=== PATIENT | male | born 1995 | race Caucasian/White ===

== ENCOUNTER 2021-08-29 10:00 | Outpatient (REF) | payer BC, OTHER, SELFPAY ==
[2021-08-29 11:31] LABS: MANUAL DIFF FLAG NO
[2021-08-29 11:40] LABS: Basophils Percent Auto 0.6 % (0-2); Eosinophils Absolute Auto 0.9 X10*3/uL (0.0-0.4); Eosinophils Percent Auto 13.3 % (0-4); Hematocrit 44.2 % (42.0-52.0); Hemoglobin 14.4 g/dl (14.0-18.0); Imm Gran Abs Auto 0.01 X10*3/uL (0.00-0.03); Imm Gran Pct Auto 0.2 % (0.0-0.4); Lymphocytes Percent Auto 30.8 % (20-40); Mean Corpuscular HGB Conc 32.6 g/dl (31.0-36.0); Mean Corpuscular Hemoglobin 28.4 pg (27.0-33.0); Mean Corpuscular Volume 87.2 fL (80.0-98.0); Mean Platelet Volume 10.6 fL (9.4-12.4); Monocytes Absolute Auto 0.5 X10*3/uL (0.1-1.2); Neutrophils Absolute Auto 3.1 x10*3/uL (2.0-8.3); Neutrophils Percent Auto 48.1 % (45-73); Platelet Count 241 X10*3/uL (160-400); Red Blood Count 5.07 X10*6/uL (4.60-5.80); Red Cell Distribution Width 12.4 % (11.0-16.0); White Blood Count 6.5 X10*3/uL (4.8-10.8)
[2021-08-29 11:54] LABS: Alanine Aminotransferase 21 U/L (0-40); Anion Gap 12 (12-20); Aspartate Amino Transferase 27 U/L (5-37); Blood Urea Nitrogen 20 mg/dL (9-16); Calcium 9.6 mg/dL (8.4-10.2); Carbon Dioxide 29 mmol/L (22-29); Chloride 104 mmol/L (96-108); Cholesterol 211 mg/dL; Estimated Glomerular Filt Rate > 60; Glucose Fasting 99 mg/dL (60-99); HDL Cholesterol 54 mg/dL; LDL Cholesterol Calculated 144 mg/dl; Potassium 4.6 mmol/L (3.3-5.1); Sodium 140 mmol/L (135-145); Triglycerides 67 mg/dL
== END 2021-08-29 10:01 | disposition home or self-care (01) ==
LOC: HO.HMGCLDS 10:00
PROVIDERS: PCP Internal Medicine; Visit Provider Internal Medicine
DX: Z00.01 Encounter for general adult medical examination with abnormal findings (principal); E66.9 Obesity, unspecified
CPT/HCPCS: 36415; 80048; 80061; 84450; 84460; 85025

== ENCOUNTER 2022-01-09 12:48 | Outpatient (REF) | payer BC, SELFPAY ==
--- NOTE | ~2022-01-09 | XR_ITS ---
EXAMINATION: XR SHOULDER, LEFT CLINICAL INFORMATION: Pain. COMPARISON: None TECHNIQUE: AP external rotation, Grashey, scapular Y, and axillary views of the left shoulder. FINDINGS: The bones and soft tissues are normal. No fracture. Glenohumeral and acromioclavicular alignment is anatomic with normal joint space. No abnormal soft tissue calcifications. XR/XR shoulder LT min 2V IMPRESSION: Normal left shoulder.
== END 2022-01-09 12:49 | disposition home or self-care (01) ==
LOC: HO.HMGCX 12:48
PROVIDERS: PCP Internal Medicine; Visit Provider Nurse Practitioner Family
DX: M25.512 Pain in left shoulder (principal)
CPT/HCPCS: 73030

== ENCOUNTER 2023-12-03 08:39 | Outpatient (AMB) | payer OTHER, SELFPAY ==
--- NOTE | 2023-12-03 08:42 | AM.OFFWIN_ITS ---
Intake Vital Signs 12/03/23 08:43 Height 5 ft 7 in Weight 220 lb BMI 34.5 BP 170/90 H Blood Pressure Location Lt brachial Position Sitting Pulse 57 Pulse Source Pulse Oximeter Temp 97.5 F Temp Source Temporal Artery Scan Pulse Oximetry (%) 98 Oxygen Delivery Method Room Air Intake Visit Reasons: EP acid reflux Intake Note: pt is here today for acid reflux started sunday Patient Tobacco Use Status: Never used Tobacco Allergies No Known Allergies Allergy (Verified 12/03/23 08:45) Do you need a note to return to daycare/school/sports/work: No HPI HPI Comments History of Present Illness Details Patient is a 28-year-old male with no significant past medical history complaining of acid reflux. He states that 3 days ago, he had a coffee and since then he has been having burning in his chest and a lot of burping as well as some diarrhea, nausea and chest pain. He denies any headaches or dizziness or nausea. In the office, his blood pressure is elevated 170/90 upon recheck systolic was in the 150s and again in the 170s, he denies a history of hypertension but he does state he has a blood pressure cuff at home. EKG done in the office shows incomplete right bundle branch block, we have no previous to compare. [facility] Medical History Left radial fracture Mild intermittent asthma in adult without complication OCD (obsessive compulsive disorder) Family History Father Anxiety HTN (hypertension) Hypercholesterolemia Paternal Uncle Throat cancer Anxiety Paternal Grandfather Mental health disorder Social History Housing: House Alcohol intake: former Patient Tobacco Use Status: Never used Tobacco e-Cigarette/Vaping Use: Never Used Current occupational status: employed and student Current occupation: fitter welder, graduated from [employer] Review of Systems Const All systems reviewed & are unremarkable except as noted in HPI and below Physical Exam Vital Signs: Last Vital Signs Temp 97.5 F 12/03/23 08:43 Pulse 57 12/03/23 08:43 BP 170/90 H 12/03/23 08:43 Pulse Ox 98 12/03/23 08:43 Oxygen Delivery Method Room Air 12/03/23 08:43 BMI result Body Mass Index 34.5 Const General: cooperative, healthy appearing, comfortable, no acute distress and well developed Orientation/consciousness: patient oriented x3 Limitations: no limitations HEENT Head: Yes normal to inspection Eyes General: appearance normal, both eyes and all related structures Neck Neck: Yes normal visual inspection and Yes full ROM Resp Effort & Inspection: normal respiratory effort and able to speak in complete sentences Auscultation: clear to auscultation bilaterally Cardio Rate: regular rate Rhythm: regular rhythm Heart sounds: normal S1 and S2 GI Inspection: Yes normal to inspection Palpation (GI): Soft to palpation and nontender Skin General skin exam: no rashes or lesions noted Neuro General: patient oriented x3 Extrem General: Yes normal to inspection Office Procedures EKG 09009-[id number], Complete Assessment & Plan Assessment & Plan (1) Right bundle branch block: Code(s): I45.10 - Unspecified right bundle-branch block Plan: see below (2) Chest pain: Code(s): R07.9 - Chest pain, unspecified Qualifiers: Chest pain type: unspecified Qualified Code(s): R07.9 - Chest pain, un specified Plan: Called ER to expect patient, needs to be ruled out for CT as this is a new right bundle branch block with chest pain and elevated blood pressures which need to be managed, the patient will need workup in the ED. explain this to the patient and did advise if he went straight to , and something was wrong, they would be best to handle it but advised he could go to [facility] as well for further workup and if anything was wrong, they could transfer him via ambulance fairly quickly but it would result in a delay of care. He understands and is choosing to go to [facility]. Plan See above Coding Level of Care Code Est Pt Level 5 (59984) Diagnoses Right bundle branch block I45.10 Chest pain, unspecified type R07.9 Chest pain type: unspecified CPT Codes EKG - CPT: 39839-[id number], Complete ([id number])
[2023-12-03 08:43] VITALS: BP 170/90; PULSE 57; TEMP 36.4; O2SAT 98; BMI 34.5
== END 2023-12-03 09:36 | disposition home or self-care (01) ==
PROVIDERS: PCP Internal Medicine; Visit Provider Physician Assistant
DX: I45.10 Unspecified right bundle-branch block (principal); R07.9 Chest pain, unspecified
CPT/HCPCS: 93000; 99215

== ENCOUNTER 2023-12-03 10:03 | Emergency (ER) | payer OTHER, SELFPAY ==
--- NOTE | 2023-12-03 | ECG_ITS ---
Test Reason : abnormal ekg Blood Pressure : / mmHG Vent. Rate : 066 BPM Atrial Rate : 066 BPM P-R Int : 146 ms QRS Dur : 096 ms QT Int : 424 ms P-R-T Axes : 057 073 039 degrees QTc Int : 444 ms Normal sinus rhythm with sinus arrhythmia Normal ECG No previous ECGs available Referred By: Generic ED Physician Electronically Signed By:MARRY GOMEZ
--- NOTE | ~2023-12-03 | XR_ITS ---
EXAMINATION: XR CHEST CLINICAL INFORMATION: Chest pain COMPARISON: None available. TECHNIQUE: 2 views of the chest were obtained. FINDINGS: No significant abnormality is noted involving the heart, lungs, mediastinum, bony thorax or soft tissues. XR/XR chest 2V IMPRESSION: Unremarkable examination.
[2023-12-03 10:25] VITALS: BP 155/89; PULSE 66; RESP 18; TEMP 36.3; O2SAT 99; BMI 34.5
[2023-12-03 10:45] LABS: Alanine Aminotransferase 30 U/L (0-40); Albumin Level 4.8 g/dL (3.5-5.0); Alkaline Phosphatase 69 U/L (39-117); Anion Gap 16 (12-20); Aspartate Amino Transferase 27 U/L (5-37); Bilirubin Total 0.4 mg/dL (0.0-1.0); Blood Urea Nitrogen 17 mg/dL (9-16); Calcium 10.1 mg/dL (8.4-10.2); Carbon Dioxide 24 mmol/L (22-29); Chloride 104 mmol/L (96-108); Creatinine Clr Calc Pharmacy 112.5; Estimated Glomerular Filt Rate > 60; Glucose Random 111 mg/dL (60-115); Potassium 4.2 mmol/L (3.3-5.1); Sodium 140 mmol/L (135-145); Total Protein 8.1 g/dL (6.5-8.0)
[2023-12-03 10:51] LABS: Troponin-I High Sensitivity < 2.7 ng/L (<3.5-35.0)
[2023-12-03 10:59] LABS: Basophils Absolute Auto 0.1 X10*3/uL (0.0-0.2); Basophils Percent Auto 0.8 % (0-2); Eosinophils Absolute Auto 0.6 X10*3/uL (0.0-0.4); Eosinophils Percent Auto 7.3 % (0-4); Hematocrit 44.1 % (42.0-52.0); Hemoglobin 15.3 g/dl (14.0-18.0); Imm Gran Abs Auto 0.04 X10*3/uL (0.00-0.03); Imm Gran Pct Auto 0.5 % (0.0-0.4); MANUAL DIFF FLAG SCAN; Mean Corpuscular HGB Conc 34.7 g/dl (31.0-36.0); Mean Corpuscular Hemoglobin 29.2 pg (27.0-33.0); Mean Platelet Volume 10.6 fL (9.4-12.4); Monocytes Absolute Auto 0.5 X10*3/uL (0.1-1.2); Monocytes Percent Auto 6.9 % (2-11); Neutrophils Absolute Auto 4.5 x10*3/uL (2.0-8.3); Neutrophils Percent Auto 58.5 % (45-73); PLT CLUMP 1; Red Blood Count 5.24 X10*6/uL (4.60-5.80); Red Cell Distribution Width 12.2 % (11.0-16.0); SCAN SMEAR FLAG 1; White Blood Count 7.7 X10*3/uL (4.8-10.8)
[2023-12-03 11:00] LABS: Mean Corpuscular Volume 84.2 fL (80.0-98.0)
[2023-12-03 11:14] LABS: Platelet Count 207 X10*3/uL (160-400)
[2023-12-03 11:15] LABS: SLIDE REVIEW VERIFIED
--- NOTE | 2023-12-03 12:23 | ED.CHESTPAIN ---
HPI - Chest Pain General Chief Complaint: Chest Pain Stated Complaint: Abnormal EKG Time Seen by Provider: 12/03/23 12:17 Source: patient Limitations: no limitations History of Present Illness HPI narrative: 28 years old with no significant past medical history, family history of CAD, presents to the emergency room sent from walk-in clinic for abnormal EKG. Patient presented to the walk-in clinic because since Sunday he has been having intermittent episodes of chest pain that patient reports are xhan-[id number] in intensity, worsened by some type of food and relieved by drinking water, not exertional nonpleuritic. Patient also endorses large use of caffeinated drinks over the past few days. He denies abdominal pain nausea or vomiting. No chills fever or cough Recent trauma. Related Data Home Medications ?Medication ?Instructions ?Recorded ?Confirmed budesonide-formoterol HFA 160 2 puff inhalation BID 08/26/20 08/29/21 mcg-4.5 mcg/actuation aerosol inhaler (Symbicort) fluoxetine 20 mg capsule (Prozac) 20 mg PO DAILY 08/26/20 08/29/21 Previous Rx's ?Medication ?Instructions ?Recorded albuterol sulfate 90 mcg/actuation 2 puff inhalation Q6H PRN 08/26/20 aerosol inhaler (ProAir HFA) shortness of breath or wheezing #8.5 grams pantoprazole 20 mg tablet,delayed 20 mg PO DAILY #14 tabs 12/03/23 release Allergies Allergy/AdvReac Type Severity Reaction Status Date / Time No Known Allergies Allergy Verified 12/03/23 10:30 Review of Systems Review of Systems: Yes all other systems are reviewed and are negative [facility] Past Medical History Medical History Left radial fracture Mild intermittent asthma in adult without complication OCD (obsessive compulsive disorder) Family History Family History Father Anxiety HTN (hypertension) Hypercholesterolemia Paternal Uncle Throat cancer Anxiety Paternal Grandfather Mental health disorder Social History Social History Housing: House Alcohol intake: former Patient Tobacco Use Status: Never used Tobacco e-Cigarette/Vaping Use: Never Used Use of substances other than those prescribed or required for medical reasons: No Advance Directives: No Advance Directives Information Provided: Yes Do you have a plan to hurt others: No Plan Current occupational status: employed and student Current occupation: lead welder, graduated from [employer] Physical Exam Vital Signs: Vital Signs: Last Vital Signs Temp 97.6 F 12/03/23 12:26 Pulse 56 12/03/23 12:26 Resp 16 12/03/23 12:26 BP 160/84 H 12/03/23 12:26 Pulse Ox 98 12/03/23 12:26 O2 Del Method Room Air 12/03/23 12:26 BMI result Body Mass Index 34.5 General: Alert, Not in Distress Skin: No rash, warm HEENT: Atraumatic, No Exudate or Pharyngeal Erythema Resp: Normal Breath sounds bilaterally Cardio: Regular rate and Rhythm, Normal S1, S2 ABD: Abd soft, non tender, no guarding or rebound. Normal Bowel sounds. : No cva tenderness Neuro: Alert, oriented x4, PERRL Strenght 5/5 on all extremities Sensation is preserved in both lower and upper extremities Index to nose: normal Cranial Nerves II-XII grossly intact No dysarthria, or aphasia No neglet. Visual west are normal bilaterally Psych: Cooperative, NO SI Course Reevaluation(s) Reevaluation #1: Patient's lab work, imaging and EKG at this time are unremarkable. I do not think patient requires further observation or admission, pain is been present since Sunday and 1 single troponin is sufficient to rule out ACS. In my opinion the patient's symptoms may be related to GERD for this reason we will start him on PPI trial. I recommended the patient to follow-up with his primary care physician within the next 7-10 days. Return precautions were also discussed at bedside including change of pain features (exertional, associated with shortness of breath or fever) Patient understands, agrees with plan Will DC Medical Decision Making Medical Decision Making MDM Narrative: 28 years old presented to the emergency room for chest pain. Based on history and physical exam I feel pain is most likely related to GERD/GI, less likely ACS or musculoskeletal pain. Patient can be perc out, heart score is 2 based on history and EKG that he is reported as right bundle-branch block. Plan Repeat EKG Chest x-ray Troponin Admission/Observation Consideration of admission/observation: Escalation of care including admission/observation considered Lab Data MDM Lab Attestation statement: I reviewed the patient's lab results. Negative troponin 12/03/23 10:22 12/03/23 10:22 Labs: Lab Results 12/03/23 Range/Units 10:22 WBC 7.7 (4.8-10.8) X10*3/uL RBC 5.24 (4.60-5.80) X10*6/uL Hgb 15.3 (14.0-18.0) g/dl Hct 44.1 (42.0-52.0) % MCV 84.2 (80.0-98.0) fL MCH 29.2 (27.0-33.0) pg MCHC 34.7 (31.0-36.0) g/dl RDW 12.2 (11.0-16.0) % Plt Count 207 (160-400) X10*3/uL MPV 10.6 (9.4-12.4) fL Immature Gran % (Auto) 0.5 H (0.0-0.4) % Neut % (Auto) 58.5 (45-73) % Lymph % (Auto) 26.0 (20-40) % [place] % (Auto) 6.9 (2-11) % Eos % (Auto) 7.3 H (0-4) % Baso % (Auto) 0.8 (0-2) % Lymph # (Auto) 2.0 (1.2-4.9) X10*3/uL [place] # (Auto) 0.5 (0.1-1.2) X10*3/uL Eos # (Auto) 0.6 H (0.0-0.4) X10*3/uL Baso # (Auto) 0.1 (0.0-0.2) X10*3/uL Abs Immat Gran (auto) 0.04 H (0.00-0.03) X10*3/uL Absolute Neuts (auto) 4.5 (2.0-8.3) x10*3/uL Absolute Nucleated RBC 0.000 (0.0-0.012) X10*3/uL Nucleated RBC % (auto) 0.0 (0.0-0.2) /100WBC Smear Tech's Comments VERIFIED Sodium 140 (135-145) mmol/L Potassium 4.2 (3.3-5.1) mmol/L Chloride 104 (96-108) mmol/L Carbon Dioxide 24 (22-29) mmol/L Anion Gap 16 (12-20) BUN 17 H (9-16) mg/dL Creatinine 1.12 (0.5-1.4) mg/dL Estim Creat Clear Calc 112.5 Estimated GFR > 60 Random Glucose 111 (60-115) mg/dL Calcium 10.1 (8.4-10.2) mg/dL Total Bilirubin 0.4 (0.0-1.0) mg/dL AST 27 (5-37) U/L ALT 30 (0-40) U/L Alkaline Phosphatase 69 (39-117) U/L Troponin I High Sens < 2.7 (<3.5-35.0) ng/L Total Protein 8.1 H (6.5-8.0) g/dL Albumin 4.8 (3.5-5.0) g/dL Independent Interpretation I performed an independent interpretation of an: EKG (I personally reviewed and interpreted and the patient EKG that shows normal sinus rhythm) and Plain X-Ray (I personally reviewed and interpreted the patient's chest x-ray that shows normal chest x-ray. ) Discharge Plan Discharge Clinical Impression: Chest pain, Chest pain due to GERD Patient Disposition: Home, Self-Care Additional Instructions: You were seen in the emergency room for chest pain Symptoms possibly secondary to GERD For this reason we sent a prescription for pantoprazole to start tomorrow morning. This medication once a day in the morning for the next 2 weeks. Follow-up with your primary care physician in a week to make sure symptoms are improving If symptoms worsened presents emergency room for evaluation. Prescriptions: New pantoprazole 20 mg tablet,delayed release (DR/EC) 20 mg PO DAILY Qty: 14 0RF No Action budesonide-formoterol [Symbicort] 160-4.5 mcg/actuation HFA aerosol inhaler 2 puff inhalation BID fluoxetine [Prozac] 20 mg capsule 20 mg PO DAILY albuterol sulfate [ProAir HFA] 90 mcg/actuation HFA aerosol inhaler 2 puff inhalation Q6H PRN (Reason: shortness of breath or wheezing) Qty: 8.5 1RF Print Language: Hungarian
[2023-12-03 12:26] VITALS: BP 160/84; PULSE 56; RESP 16; TEMP 36.4; O2SAT 98
--- NOTE | 2023-12-03 13:26 | PC.NURSE ---
Confirmed with provider, no second trop needed. Patient to be discharged
[2023-12-03 13:32] VITALS: BP 145/78; PULSE 56; RESP 16; TEMP 36.4; O2SAT 99
== END 2023-12-03 13:32 | disposition home or self-care (01) ==
PROVIDERS: Emergency Provider Student in an Organized Health Care Education/Training Program; PCP Internal Medicine
DX: K21.9 Gastro-esophageal reflux disease without esophagitis (principal); Z82.49 Family history of ischemic heart disease and other diseases of the circulatory system
CPT/HCPCS: 36415; 71046; 80053; 84484; 85025; 93005; 99283; 99285

== ENCOUNTER → 2023-12-03 10:06 | Outpatient (BNV) | payer OTHER, SELFPAY | PROVIDERS: Emergency Provider Student in an Organized Health Care Education/Training Program; PCP Internal Medicine; Visit Provider Internal Medicine | DX: R94.31 Abnormal electrocardiogram [ECG] [EKG] (principal) | CPT/HCPCS: 93010 ==

== ENCOUNTER 2023-12-20 09:22 | Outpatient (AMB) | payer OTHER, SELFPAY ==
--- NOTE | 2023-12-20 09:23 | MHC.PC.OV ---
Vital Signs 12/20/23 09:28 Height 5 ft 7 in Weight 220 lb BMI 34.5 BP 118/76 Blood Pressure Location Lt brachial Position Sitting Pulse 46 L Pulse Source Pulse Oximeter Pulse Oximetry (%) 98 Oxygen Delivery Method Room Air Intake Visit Reasons: ER f/u C chest pain. Per Dr. Deluna Intake Note: pt is here for ER f/u for chest pain Allergies No Known Allergies Allergy (Verified 12/20/23 10:11) Medication List - Last Reconciled 12/20/23 by PAMELA Rivero albuterol sulfate 90 mcg/actuation (ProAir HFA) 2 puffs inhalation Q6H PRN budesonide-formoterol 160-4.5 mcg/actuation (Symbicort) 2 puffs inhalation BID fluoxetine (Prozac) 20 mg PO DAILY pantoprazole 20 mg PO DAILY Tobacco use date assessed: 12/20/23 Dental Screening Dental Screen Date: 12/20/23 Did you have a dental visit in the last 12 months?: Yes Did you have a dental problem in the last 6 months where you did not have access to dental care?: No Was dental information given to patient?: Patient has dentist HPI HPI Comments History of Present Illness Details Patient is a 28-year-old male in today for hospital discharge follow-up. He was seen in the local emergency room for episodes of chest pain that had been lasting for several days. Patient had workup involving troponin EKG and chest x-ray that all came back negative for ACS. Patient was diagnosed with GERD, was given pantoprazole sodium for 2 weeks. Patient presents today stating that his symptoms have subsided. Pantoprazole sodium has helped incidences of chest pain, and throat discomfort. States that he no longer has the symptoms. Denies dizziness, chest pain, shortness a breath, numbness, nausea, vomiting, diarrhea Patient is bradycardic today at the appointment. He reports that this is part of his past medical history, has had cardiological workup through [facility] including echocardiogram has been cleared. 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 1. Little interest or pleasure in doing things: not at all 2. Feeling down, depressed, or hopeless: not at all 3. Trouble falling or staying asleep, or sleeping too much: not at all 4. Feeling tired or having little energy: not at all 5. Poor appetite or overeating: not at all 6. Feeling bad about yourself - or that you are a failure or have let yourself or your family down: not at all 7. Trouble concentrating on things, such as reading the newspaper or watching television: not at all 8. Moving or speaking so slowly that other people could have noticed. Or the opposite - being so fidgety or restless that you have been moving around a lot more than usual: not at all 9. Thoughts that you would be better off or of hurting yourself in some way: not at all Total score: 0 Depression Screening Interpretation: Negative Depression Screening Done: Yes 41503 - PHQ-9 Billing: Yes Source: Developed by Drs. Morris Sandoval, Annamaria Marte, Eduin Del Rio and colleagues, with an educational naina from [employer] & other things you bake. Thrive Questionnaire Date Thrive assessed: 08/29/21 AUDIT C Alcohol Use Questionnaire (AUDIT-C) 1. How often do you have a drink containing alcohol?: 2-4 times a month 2. How many drinks containing alcohol do you have on a typical day when you are drinking?: 3 or 4 3. How often do you have six or more drinks on one occasion?: Monthly Total Score: 5 Score Reviewed/Action Taken: Yes AURORA-7 AMB Questionnaire AURORA-7 Date AURORA - 7 assessed: 12/20/23 Feeling nervous, anxious, or on edge: 0 = Not at all Not being able to stop or control worryin = Not at all Worrying too much about different things: 0 = Not at all Trouble relaxin = Not at all Being so restless that it is hard to sit still: 0 = Not at all Becoming easily annoyed or irritable: 0 = Not at all Feeling afraid as if something awful might happen: 0 = Not at all Total AURORA-7 score (0-4 normal; 5-9 mild; 10-14 moderate; 15-21 severe): 0 Source: Developed by Drs. Morris Sandoval, Annamaria Marte, Eduin Del Rio and colleagues, with an educational naina from [employer] & other things you bake. AURORA-7 Assessment Billing AURORA-7 Assessment Tool: AURORA-7 Assessment 83943 Review of Systems Const All systems reviewed & are unremarkable except as noted in HPI and below Denies chills and Denies fever(s) Eyes Denies blurry vision and Denies diplopia ENT Denies vertigo, Denies dizziness and Denies disequilibrium Card Denies chest pain and Denies dyspnea Resp Denies cough, Denies dyspnea and Denies wheezing GI Denies diarrhea, Denies nausea and Denies vomiting Neuro Denies Neuro-related abnormal movements, Denies Abnormal speech present, Denies vertigo, Denies dizziness, Denies radicular pain and Denies disequilibrium Psych Denies homicidal ideation and Denies suicidal ideation Aller/Immun Denies wheezing Physical exam (Primary Care) Vital Signs: Last Vital Signs Pulse 46 L 12/20/23 09:28 BP 118/76 12/20/23 09:28 Pulse Ox 98 12/20/23 09:28 Oxygen Delivery Method Room Air 12/20/23 09:28 BMI result Body Mass Index 34.5 Tobacco/Smoking Status: Tobacco use Status Tobacco use date assessed 12/20/23 12/20/23 09:26 Patient Tobacco Use Status Never used Tobacco 12/20/23 09:26 e-Cigarette/Vaping Use Never Used 12/20/23 09:26 PHQ-9: PHQ-9 Score PHQ-9: Total score 0 12/20/23 09:26 Depression Screening Interpretation: Negative Thrive Assessment: Date of Thrive Assessment Date Thrive assessed 08/29/21 12/20/23 09:26 Const Other: Appearance: Alert.? Oriented X3.? No acute distress.? Head: Normocephalic, atraumatic, no step-offs or deformities Eyes: Pupils equal, round and reactive to light.? Neck: Normal inspection.? Neck supple.? CVS: Bradycardia.? Pulses normal.? Will obtain repeat EKG. Respiratory: No respiratory distress.? Breath sounds normal.? Abdomen: Soft and nontender.? Skin: Skin warm and dry.? Normal skin color.? Normal skin turgor.? Neuro: Oriented X 3.? No motor deficit.? No sensory deficit. CN 2-12 intact Neuro Speech: No Abnormal speech present Office Procedures EKG 40350-[id number], Complete Assessment and Plan Assessment & Plan (1) Hospital discharge follow-up: Comment: Patient is a 28-year-old male in today for hospital discharge follow-up. He was seen in the local emergency room for episodes of chest pain that had been lasting for several days. Patient had workup involving troponin EKG and chest x-ray that all came back negative for ACS. Patient was diagnosed with GERD, was given pantoprazole sodium for 2 weeks. Patient presents today stating that his symptoms have subsided. Pantoprazole sodium has helped incidences of chest pain, and throat discomfort. States that he no longer has the symptoms. Denies dizziness, chest pain, shortness a breath, numbness, nausea, vomiting, diarrhea Patient is bradycardic today at the appointment. He reports that this is part of his past medical history, has had cardiological workup through [facility] including echocardiogram has been cleared. 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 Code(s): Z09 - Encounter for follow-up examination after completed treatment for conditions other than malignant neoplasm (2) Abnormal EKG: Comment: Patient will get referral to cardiology and echocardiogram. Patient has been educated on signs of worsening symptoms and when to report back to the office or when to present to the emergency room. Patient is asymptomatic at the office today. Code(s): R94.31 - Abnormal electrocardiogram [ECG] [EKG] Plan: Draw labs. Orders: Orders AMB EKG-In Office Today Z13.6 - Encounter for screening for cardiovascular disorders CA echo transthoracic complete Today R94.31 - Abnormal electrocardiogram [ECG] [EKG] Referrals Cardiology Referral R94.31 - Abnormal electrocardiogram [ECG] [EKG] Medications: Refilled pantoprazole 20 mg PO DAILY 30 tabs 0RF Coding Level of Care Code Est Pt Level 3 (26220) Diagnoses Hospital discharge follow-up Z09 Abnormal EKG R94.31 CPT Codes EKG - CPT: 16728-[id number], Complete ([id number]) Additional Codes AURORA-7 Assessment Billing - AURORA-7 Assessment Tool: AURORA-7 Assessment 90841 ([id number]) Time Spent (min) 28
[2023-12-20 09:28] VITALS: BP 118/76; PULSE 46; O2SAT 98; BMI 34.5
== END 2023-12-20 11:22 | disposition home or self-care (01) ==
LOC: HO.HMGC 09:22
PROVIDERS: PCP Internal Medicine; Visit Provider Nurse Practitioner Primary Care
DX: R94.31 Abnormal electrocardiogram [ECG] [EKG] (principal); Z09 Encounter for follow-up examination after completed treatment for conditions other than malignant neoplasm
CPT/HCPCS: 93000; 99213

== ENCOUNTER 2024-01-18 08:11 | Outpatient (AMB) | payer OTHER, SELFPAY ==
--- NOTE | 2024-01-18 08:27 | A.OFFVIS_ITS ---
Vital Signs 01/18/24 08:28 Height 5 ft 7 in Weight 226 lb 10.163 oz BMI 35.5 BP 122/80 Blood Pressure Location Rt brachial Position Sitting Pulse 53 Pulse Source Monitor Intake Visit Reasons: INTERNAL REVENUE AGENT/ER Follow up/Monique/Abnormal ECG/EKG Allergies No Known Allergies Allergy (Verified 01/18/24 08:30) Medication List - Last Reconciled 01/18/24 by January Pfeiffer NP-C albuterol sulfate 90 mcg/actuation (ProAir HFA) 2 puffs inhalation Q6H PRN fluoxetine (Prozac) 20 mg PO DAILY pantoprazole 20 mg PO DAILY HPI HPI INTERNAL REVENUE AGENT/ER Follow up/Monique/Abnormal ECG/EKG: Details: Benjamin is a 28-year-old male with past medical history of asthma, gastric reflux who was referred to Cardiology for evaluation of sinus bradycardia, incomplete right bundle branch block. Today he presents for cardiology consultation. He tells me he has no chest discomfort at rest or with exertion. His prior chest discomfort was felt to be GERD and relieved with PPI. He does have asthma which has been controlled. At times he will notice some mild shortness of breath. No PND, orthopnea or edema. No lightheadedness, presyncope, syncope, falls. Had an echocardiogram years ago which he believes was normal. Played hockey all his life and through college. At this time he continues to exercise 4 days weekly with weight lifting and cardio. He recently ran 4 miles without concerning symptoms. He works as a automotive welder. Nonsmoker, denies out use. Maternal uncle had fatal ND age 39. No other family cardiac history. [facility] Medical History Left radial fracture OCD (obsessive compulsive disorder) Mild intermittent asthma in adult without complication Surgical History No pertinent past surgical history Family History Father Anxiety HTN (hypertension) Hypercholesterolemia Paternal Uncle Throat cancer Anxiety Paternal Grandfather Mental health disorder Social History Housing: House Alcohol intake: former Patient Tobacco Use Status: Never used Tobacco e-Cigarette/Vaping Use: Never Used Current occupational status: employed and student Current occupation: automotive welder, graduated from [employer] Cognitive needs: No Hearing needs: No Vision needs: No Review of Systems Const All systems reviewed & are unremarkable except as noted in HPI and below ENT Denies dizziness Card Denies chest pain, Denies chest pain at rest, Denies chest pain with activity, Denies rapid heart rate, Denies pedal edema, Denies edema, Denies leg edema, Denies lightheadedness, Denies palpitations, Denies dyspnea, Denies dyspnea on exertion and Denies orthopnea Resp Denies cough, Denies dyspnea and Denies dyspnea on exertion GI Denies hematochezia and Denies change in stool character Musc Denies abnormal gait, Denies limited range of motion, Denies muscle cramps, Denies muscle weakness, Denies numbness, Denies radiating pain into limb, Denies stiffness and Denies tingling Neuro Denies abnormal gait, Denies dizziness, Denies numbness and Denies tingling Endo Denies palpitations Physical Exam Vital Signs: Last Vital Signs Pulse 53 01/18/24 08:28 BP 122/80 01/18/24 08:28 BMI result Body Mass Index 35.5 Const General: cooperative, healthy appearing, comfortable and no acute distress Orientation/consciousness: patient oriented x3 Neck Neck: Yes normal visual inspection Carotids: normal carotid upstroke Resp Effort & Inspection: normal respiratory effort Auscultation: clear to auscultation bilaterally, no crackles, no rales, no rhonchi and no wheezes Cardio Jugular venous distension: no JVD Rate: regular rate Rhythm: regular rhythm Heart sounds: S1 normal heart sound present, S2 normal heart sound present, no murmurs and no rubs Neuro General: patient oriented x3 Extrem General: Yes normal to inspection and No no pedal edema Psych Appearance: grossly normal Mental Status: mental status grossly normal Speech and movement: Normal speech and movement present Office Procedures EKG Details: Today, read by me, sinus bradycardia with sinus arrhythmia, incomplete right bundle branch block, right axis, QTC 407 milliseconds, rate 53. [id number], Complete Assessment & Plan Assessment & Plan (1) Sinus bradycardia: Code(s): R00.1 - Bradycardia, unspecified Category: Medical Plan: History of sinus bradycardia. EKG from 01/19/2017 showed marked sinus bradycardia, incomplete right bundle branch block, rate 41. 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 He continues to exercise routinely. He has never had presyncope, syncope. He reports good activity tolerance. EKG done today showing sinus bradycardia with sinus arrhythmia, incomplete right bundle branch block, rate 53, normal MN, QRS and QTC intervals. He is not on any rate slowing agents. He likely has good cardiac tone due to sports. For completeness will check a Holter monitor to assess for average heart rates, significant bradycardia or pauses. Will check an exercise stress test to evaluate for chronotropic competence. Plan to call him with test results. Cardiology office visit as needed. All the above reviewed with him and he is agreeable to this plan (2) Incomplete right bundle branch block: Code(s): I45.10 - Unspecified right bundle-branch block Category: Medical Plan: Chronic finding as above. No other electrical abnormalities noted on EKG. Reviewed this with patient. Cardiac testing as above. (3) Chest pain: Code(s): R07.9 - Chest pain, unspecified Category: Medical Qualifiers: Chest pain type: unspecified Qualified Code(s): R07.9 - Chest pain, unspecified Plan: Recent ER evaluation for chest discomfort. He ruled out for ACS. His symptom was thought to be related to GERD. He was put on pantoprazole with improvement in symptoms. At this point he has no anginal sounding symptoms. He does have a family history of sudden cardiac in maternal uncle age 39. Will be doing exercise stress test as above. Plan Time spent on chart review, documentation, interview and assessment Orders: Orders ECG 3 day holter monitor Today I45.10 - Unspecified right bundle-branch block, R00.1 - Bradycardia, unspecified CA stress test Today I45.10 - Unspecified right bundle-branch block, R00.1 - Bradycardia, unspecified, R07.9 - Chest pain, unspecified Coding Level of Care Code New Pt Level 3 (57989) Diagnoses Sinus bradycardia R00.1 Incomplete right bundle branch block I45.10 Chest pain, unspecified type R07.9 Chest pain type: unspecified CPT Codes EKG - CPT: [id number], Complete ([id number]) Time Spent (min) 28
[2024-01-18 08:28] VITALS: BP 122/80; PULSE 53; BMI 35.5
== END 2024-01-18 08:52 | disposition home or self-care (01) ==
PROVIDERS: PCP Internal Medicine; Visit Provider Nurse Practitioner Family
DX: R00.1 Bradycardia, unspecified (principal); I45.10 Unspecified right bundle-branch block; R07.9 Chest pain, unspecified
CPT/HCPCS: 93010; 99203

== ENCOUNTER → 2024-01-18 08:11 | Outpatient (BNVA) | payer OTHER, SELFPAY | PROVIDERS: PCP Internal Medicine; Visit Provider Nurse Practitioner Family | DX: R00.1 Bradycardia, unspecified (principal); I45.10 Unspecified right bundle-branch block; R07.9 Chest pain, unspecified | CPT/HCPCS: 93005 ==

== ENCOUNTER → 2024-01-30 08:47 | Outpatient (REF) | payer OTHER, SELFPAY ==
--- NOTE | 2024-01-30 08:51 | CA_ITS ---
Transthoracic Echocardiogram Patient (Last, First, Middle): Benjamin Kelley Thomas Gender: Male Date of : 1995 Age: 28 Procedure Date: 01/30/2024 Procedure Type: Transthoracic Echocardiogram Location: OP Height: 170.18 cm Weight: 99.79 kg BSA: 2.11 m2 Heart Rate: bpm BP: 140 / 90 mmHg Roving Machine Operator: TO Referring MD: Elder SANTIAGO Lining Machine Operator: Prakash Alvarado MD Symptoms: R94.31 - Abnormal electrocardiogram [ECG] [EKG] Study Quality: Adequate ECG Rhythm: Sinus Conclusions: - Essentially normal study Findings Procedure Information Contrast agent, definity, is being given per protocol without apparent complications. Left Ventricle Normal left ventricular size, thickness, and systolic function. The visually estimated ejection fraction is between 55-60%. Diastolic function is normal for age. Right Ventricle Normal right ventricular cavity size and systolic function. Atria Both atria are normal in size. Interatrial shunt cannot be excluded. Aortic Valve The aortic valve structure and function is likely normal. There is no aortic valve stenosis. There is no aortic valve regurgitation. Mitral Valve Normal mitral valve structure and function. There is trace mitral valve regurgitation. There is no mitral valve stenosis. Pulmonic Valve The pulmonic valve is likely normal. There is trace pulmonic valve regurgitation. Tricuspid Valve Likely normal tricuspid valve structure and function. Tricuspid regurgitation envelope is inadequate for calculation of right ventricular systolic pressure. Normal right atrial pressure. Great Vessels All visible segments of the aorta are normal in size. The pulmonary artery was not well visualized. Venous The inferior vena cava is normal in size. Inferior vena cava flow is normal. Pericardium/Pleural There is no evidence of pericardial effusion. Prior Study Comparison No prior study available for comparison. Measurements 2D Linear Measurements IVSd: 0.89 0.6-0.9/0.6-1.0 cm LVIDd: 5.60 3.9-5.3/4.2-5.9 cm LVIDd Index: 2.65 2.4-3.2/2.2-3.1 cm/m2 LVIDs: 3.54 2.0-3.6 cm LVPWd: 0.84 0.7-1.1 cm LA Diam: 3.60 2.7-3.8/3.0-4.0 cm LAIDs Index: 1.71 1.5-2.3 cm/m2 LV Mass: 226.78 67-162/88-224 g LV Mass Index: 107.48 43-95/49-115 g/m2 LVOT Diam: 2.40 3.0+(-)1.3 cm 2D Systolic Function EF 4C: 56.00 >55% EF 2C: 61.80 >55% EF BiP: 59.60 >55% Mitral Valve MV Pk E: 0.69 MV PK A: 0.36 MV Decel Time: 246.00 E/A: 1.90 E'Lateral: 17.00 E'Medial: 8.81 E/E' Med: 7.90 E/E' Lat: 4.10 PHT: 72.00 MVA PHT: 3.06 Decel Bonner: 2.82 Aortic Valve AoV Pk Wicho: 1.42 AoV Mn Wicho: 0.82 AoV VTI: 0.25 AoV Pk Grad: 8.00 Aov Mn Grad: 3.00 MIKE Cont.VTI: 3.74 LVOT LVOT Pk Wicho: 1.06 LVOT Mn Wicho: 0.77 LVOT VTI: 0.21 LVOT Pk Grad: 4.00 LVOT Mn Grad: 3.00 LVOT Diam: 2.40 LVOT Area: 4.52 Diastolic Function MV Pk E: 0.69 MV Pk A: 0.36 E/A: 1.90 E'Medial: 8.81 E/E' Med: 7.90 E' Laterial: 17.00 E/E' Lat: 4.10 Right Ventricle TAPSE (mm): 26.40 TVS' Wicho: 16.40 Tricuspid Valve RA Press: 3.00 Great Vessels Aorta Ao Asc: 2.60 2.1-3.4 cm Updated in Other Vendor System with Status of Final Prakash Alvardao MD electronically signed on 01/30/2024 3:31:06 PM with status of Final
--- NOTE | 2024-01-30 08:51 | HM_ITS ---
* Total monitoring time 3 days. * Underlying rhythm is sinus with an average rate of 63/Min. * About 54% of the time, rate < 60/Min. * No significant pauses or high-grade AV blocks. * No patient markers or diary events. MTDD
== END ==
LOC: HO.CARD 08:47
PROVIDERS: PCP Internal Medicine; Visit Provider Nurse Practitioner Primary Care
DX: R00.1 Bradycardia, unspecified (principal); I45.10 Unspecified right bundle-branch block
CPT/HCPCS: 93242; 93306; Q9957

== ENCOUNTER → 2024-01-30 08:51 | Outpatient (BNV) | payer OTHER, SELFPAY | PROVIDERS: PCP Internal Medicine; Visit Provider Internal Medicine Cardiovascular Disease | DX: R00.1 Bradycardia, unspecified (principal) | CPT/HCPCS: 93244; 93306 ==

== ENCOUNTER → 2024-02-04 07:57 | Outpatient (REF) | payer OTHER, SELFPAY ==
--- NOTE | 2024-02-04 08:00 | CA_ITS ---
Acquisition Time: 2024-02-04 08:15:32 Total Exercise Time: 00:09:00 Test Indications: ABN EKG, SD, IRBBB Medications: SEE CHART Protocol: MARY Max HR: 171 BPM 88% of Pred: 194 BPM Max BP: 208/060 mmHG Max Work Load: 10.1 METS Excerise stress test exercise 9 min of Mary protocol achieving 88% MPHR, without anginal symptoms, with isolated PACs, with normal chronotropic response, with HTN response to exercise - max BP 208/60, withT wave inversion in lead 3. Test reviewed with Dr. Whiting. Referred By: January Pfeiffer Overread By: Carolyne Rinaldi
== END ==
LOC: HO.CARD 07:57
PROVIDERS: PCP Internal Medicine; Visit Provider Nurse Practitioner Family
DX: R07.9 Chest pain, unspecified (principal); I45.10 Unspecified right bundle-branch block; R00.1 Bradycardia, unspecified
CPT/HCPCS: 93017

== ENCOUNTER → 2024-02-04 08:00 | Outpatient (BNV) | payer OTHER, SELFPAY | PROVIDERS: PCP Internal Medicine; Visit Provider Nurse Practitioner | DX: I49.1 Atrial premature depolarization (principal) | CPT/HCPCS: 93016; 93018 ==

== ENCOUNTER 2024-10-23 14:18 | Outpatient (AMB) | payer OTHER, SELFPAY ==
[2024-10-23 14:22] VITALS: BP 144/80; PULSE 56; RESP 15; TEMP 36.9; O2SAT 99; BMI 36.8
--- NOTE | 2024-10-23 14:22 | A.OFFPC_ITS ---
Vital Signs 10/23/24 14:22 10/23/24 14:35 Height 5 ft 7 in Weight 235 lb BMI 36.8 BP 144/80 H 130/85 Blood Pressure Location Lt brachial Lt brachial Position Sitting Sitting Respiration 15 Pulse 56 Pulse Source Pulse Oximeter Temp 98.5 F Temp Source Oral Pulse Oximetry (%) 99 Oxygen Delivery Method Room Air Intake Visit Reasons: annual pe Intake Note: Pt is here today for his PE Allergies No Known Allergies Allergy (Verified 10/23/24 14:41) Medication List - Last Reconciled 10/23/24 by Janie Verdugo MD aripiprazole 2 mg PO DAILY fluoxetine 80 mg PO QAM Tobacco use date assessed: 10/23/24 Dental Screening Dental Screen Date: 10/23/24 Did you have a dental visit in the last 12 months?: Yes Did you have a dental problem in the last 6 months where you did not have access to dental care?: Yes Was dental information given to patient?: Patient has dentist HPI annual pe HPI Details 29 year-old male with past medical history of asthma, gastric reflux with history of sinus bradycardia, here today for his physical exam. He was referred and seen by Cardiology last year for evaluation of sinus bradycardia, incomplete right bundle branch block. They ordered Echocardiogram, which was done 01/30/24, was normal study. Holter done 01/29 for 3 days showed SR average rate 63, 54% of time heart rate < 60, no pauses or high degree heart block. Exercise stress test done 02/04/24 with exercise 9 min achieving 88% MPHR, no angina or EKG changes of ischemia. No further cardiac testing needed at this time. Denies any episodes of chest pain, palpitations, lightheadedness or shortness of breath. Currently sees psychiatrist, Dr Eric Nuñez , for treatment of his OCD, currently stable and controlled on fluoxetine 80 mg daily in the morning and aripiprazole 2 mg daily. Asthma is well controlled, rarely needing to use his inhaler. He does not smoke cigarettes but chews tobacco. He has been feeling well, with no complaints at present time [facility] Medical History (Updated 10/26/24 @ 19:30 by Janie Verdugo MD) Dyslipidemia Chewing tobacco use Obesity (BMI 35.0-39.9 without comorbidity) History of fracture of radius OCD (obsessive compulsive disorder) Mild intermittent asthma in adult without complication Surgical History No pertinent past surgical history Family History Father Anxiety HTN (hypertension) Hypercholesterolemia Paternal Uncle Throat cancer Anxiety Paternal Grandfather Mental health disorder Social History (Updated 10/26/24 @ 19:20 by Janie Verdugo MD) Housing: House Alcohol intake: former Patient Tobacco Use Status: Current everyday Tobacco user Tobacco use type: Smokeless Tobacco e-Cigarette/Vaping Use: Never Used Current occupational status: employed Current occupation: welder journeyman, graduated from [employer] Cognitive needs: No Hearing needs: No Vision needs: No Questionnaire PHQ-9 Over the last 2 weeks, how often have you been bothered by any of the following problems? 1. Little interest or pleasure in doing things: not at all 2. Feeling down, depressed, or hopeless: not at all 3. Trouble falling or staying asleep, or sleeping too much: not at all 4. Feeling tired or having little energy: not at all 5. Poor appetite or overeating: several days 6. Feeling bad about yourself - or that you are a failure or have let yourself or your family down: not at all 7. Trouble concentrating on things, such as reading the newspaper or watching television: not at all 8. Moving or speaking so slowly that other people could have noticed. Or the opposite - being so fidgety or restless that you have been moving around a lot more than usual: not at all 9. Thoughts that you would be better off or of hurting yourself in some way: not at all Total score: 1 Depression Screening Interpretation: Negative Depression Screening Done: Yes 09251 - PHQ-9 Billing: Yes Source: Developed by Drs. Morris Sandoval, Annamaria Marte, Eduin Del Rio and colleagues, with an educational naina from [employer]. Thrive Questionnaire Date Thrive assessed: 10/23/24 I am a: Patient What is your living situation today?: I have a steady place to live Within the past 12 months, did the food you bought not last and you didn't have the money to get more?: Never true Within the past 12 months, did you worry whether your food would run out before you got money to buy more?: Never true Do you have trouble paying for medicines?: No Do you have trouble getting transportation to medical appointments?: No Do you have trouble paying your heating and electricity bill?: No Do you have trouble taking care of your child, family member or friend?: No Do you have trouble with day-to-day activities such as bathing, preparing meals, shopping, managing finances, etc.?: No Are you currently unemployed and looking for a job?: No Are you interested in more education?: No Please select the resources that you would like help with: None Currently or been in a relationship where the following occur: No concerns reported THRIVE Score: 0 AUDIT C Alcohol Use Questionnaire (AUDIT-C) 1. How often do you have a drink containing alcohol?: 2-3 times a week 2. How many drinks containing alcohol do you have on a typical day when you are drinking?: 5 or 6 3. How often do you have six or more drinks on one occasion?: Less than monthly Total Score: 6 AURORA-7 AMB Questionnaire AURORA-7 Date AURORA - 7 assessed: 10/23/24 Feeling nervous, anxious, or on edge: 0 = Not at all Not being able to stop or control worryin = Not at all Worrying too much about different things: 1 = Several days Trouble relaxin = Not at all Being so restless that it is hard to sit still: 0 = Not at all Becoming easily annoyed or irritable: 0 = Not at all Feeling afraid as if something awful might happen: 0 = Not at all Total AURORA-7 score (0-4 normal; 5-9 mild; 10-14 moderate; 15-21 severe): 1 Source: Developed by Drs. Morris Sandoval, Annamaria Marte, Eduin Del Rio and colleagues, with an educational naina from [employer]. AURORA-7 Assessment Billing AURORA-7 Assessment Tool: AURORA-7 Assessment 59765 ACT Questionnaire In the past 4 weeks, how much of the time did your asthma keep you from getting as much done at work, school or at home?: None of the time During the past 4 weeks, how often have you had shortness of breath?: Not at all During the past 4 weeks, how often did your asthma symptoms wake you up at night or earlier than usual in the morning?: Not at all During the past 4 weeks, how often have you had to use your rescue inhaler or nebulizer medication?: Not at all How would you rate your asthma control during the past 4 weeks?: Completely controlled ACT Interpretation: Negative Score: 25 Review of Systems Const Reports no additional complaints Eyes Denies change in vision ENT Reports no additional complaints Card Denies chest pain, Denies rapid heart rate, Denies pedal edema, Denies edema, Denies irregular heart rhythm, Denies lightheadedness, Denies dyspnea and Denies dyspnea on exertion Resp Denies cough, Denies dyspnea and Denies dyspnea on exertion GI Denies abdominal pain, Denies hematochezia, Denies change in bowel habits, Denies change in stool character and Denies heartburn Reports no additional complaints Musc Denies limited range of motion, Denies muscle cramps, Denies muscle weakness, Denies radiating pain into limb and Denies stiffness Skin/Breast Denies lesions and Denies rash Neuro Reports no additional complaints Psych Reports as per HPI Endo Reports no additional complaints Johann/Lymph Reports no additional complaints Aller/Immun Reports no additional complaints Physical exam (Primary Care) Vital Signs: Last Vital Signs Temp 98.5 F 10/23/24 14:22 Pulse 56 10/23/24 14:22 Resp 15 10/23/24 14:22 BP 130/85 10/23/24 14:35 Pulse Ox 99 10/23/24 14:22 Oxygen Delivery Method Room Air 10/23/24 14:22 BMI result Body Mass Index 36.8 Tobacco/Smoking Status: Tobacco use Status Tobacco use date assessed 10/23/24 10/23/24 14:23 Patient Tobacco Use Status Never used Tobacco 10/23/24 14:23 e-Cigarette/Vaping Use Never Used 10/23/24 14:23 PHQ-9: PHQ-9 Score PHQ-9: Total score 1 10/26/24 19:26 Depression Screening Interpretation: Negative Thrive Assessment: Date of Thrive Assessment Date Thrive assessed 10/23/24 10/23/24 14:23 Currently or been in a relationship where the following occur: No concerns reported Const General: no acute distress and alert Orientation/consciousness: patient oriented x3 HENMT Head: Yes normocephalic Ears: external ears normal, TM's normal bilaterally and EAC's normal General nose exam: Normal external nose present and No nasal discharge present Face and sinus: Yes face symmetric Mouth: Normal oral and palatal mucosa present, lip normal, tongue normal, oropharynx normal and moist mucous membranes Eyes General: appearance normal, both eyes and all related structures Conjunctivae: conjunctivae normal Pupils: Equal, round and reactive pupils present EOM: EOMs intact bilaterally Neck Neck: Yes full ROM, Yes no lymphadenopathy and Yes supple Thyroid: Thyroid normal Resp Effort & Inspection: normal respiratory effort and able to speak in complete sentences Auscultation: clear to auscultation bilaterally Cardio Rate: regular rate Rhythm: regular rhythm Heart sounds: S1 normal heart sound present and S2 normal heart sound present GI Palpation (GI): Soft to palpation, nontender, no guarding and no masses Auscultation: normal bowel sounds General: Yes no CVA tenderness Male General Exam: No hernia Back/Spine/Pelvis Back: no CVA tenderness and No back tenderness Skin General skin exam: no rashes or lesions noted Neuro General: patient oriented x3, gait normal, moves all extremities, Normal light touch and pain sensation, no focal motor deficits and CN's II-XI intact bilaterally Cranial nerves: Yes Equal, round and reactive pupils present Cognition (Neuro): normal cognition Gait exam (Neuro): Normal gait present Motor exam (neuro): 5/5 motor strength present throughout Extrem General: Yes normal to inspection, Yes full ROM, Yes no joint enlargement, Yes no pedal edema and Yes normal gait Psych Appearance: grossly normal and well kempt Mental Status: mental status grossly normal Speech and movement: Normal speech and movement present Affect: normal affect Attitude: cooperative Thought process: Normal thought process present Thought content: Normal thought content present Coding Level of Care Code Est Pt Prev Care 18-39y(33589) Diagnoses Annual visit for general adult medical examination with abnormal findings Z00.01 Mixed obsessional thoughts and acts F42.2 Obsessive-compulsive disorder type: mixed obsessional thoughts and acts Obesity (BMI 35.0-39.9 without comorbidity) E66.9 Chewing tobacco use Z72.0 Dyslipidemia E78.5 Additional Codes Asthma Control Questionnaire - ACT Interpretation: Negative ([id number]) AURORA-7 Assessment Billing - AURORA-7 Assessment Tool: AURORA-7 Assessment 99114 ([id number]) PHQ-9 - 94785 - PHQ-9 Billing: Yes ([id number]) Assessment & Plan Assessment & Plan (1) Annual visit for general adult medical examination with abnormal findings: Code(s): Z00.01 - Encounter for general adult medical examination with abnormal findings Plan: Will check appropriate labs. Recommended dental visit every 6 months and regular eye exams, at least every 2 years. Take adequate calcium in diet and vitamin-D 3 at 2000 IU per cap once a day, in addition to weight-bearing exercises to help maintain good muscle tone and weight control. Instructed to do self self-testicular exam check for any mass. Up-to-date with his Tdap and pneumococcal vaccine, reminded to get yearly flu shots and COVID booster (2) OCD (obsessive compulsive disorder): Code(s): F42.9 - Obsessive-compulsive disorder, unspecified Category: Medical Qualifiers: Obsessive-compulsive disorder type: mixed obsessional thoughts and acts Qualified Code(s): F42.2 - Mixed obsessional thoughts and acts Plan: Followed by psychiatrist, Dr. Nuñez, currently on aripiprazole and fluoxetine (3) Obesity (BMI 35.0-39.9 without comorbidity): Code(s): E66.9 - Obesity, unspecified Category: Medical Plan: Your BMI is above the ideal range. I deal BMI is between 18.5- 24. BMI is calculated from you height and weight. . Discussed need to increase activity and weight reduction. Recommend following Mediterranean diet, which is a healthy diet that helps, limit food high in fat, sugar, and calories. Eat slowly, pay attention to portion sizes, plan your meals ahead of time, start regular physical activity, at least 150 minutes of moderate intensity exercise, or 90 minutes per week of vigorous exercise. (4) Chewing tobacco use: Code(s): Z72.0 - Tobacco use Category: Social Hx Plan: Patient strongly advised to quit chewing tobacco. Discussed with patient that chewing tobacco can cause many types of cancer, including cancer of the mouth, tongue, gums, stomach, oesophagus (throat) and bladder. Heavy users might also notice that their teeth can start to get worn down and stained by the chewing tobacco, which can also cause the gums to recede. (5) Dyslipidemia: Code(s): E78.5 - Hyperlipidemia, unspecified Category: Medical Plan: Ordered fasting lipid levels to be checked . Stressed importance of adherence to low-cholesterol diet and regular exercise, at least 30 minutes 3 to 4 times a week. Advised patient to make healthy food choices, eat more fruits, vegetables, whole grains, wild caught fish and low-fat dairy. Limit amount of meat and fried or fatty food products, as well as processed foods and fast foods. Orders: Orders Lipid Panel 10/23/24 F42.2 - Mixed obsessional thoughts and acts, Z13.1 - Encounter for screening for diabetes mellitus, Z13.220 - Encounter for screening for lipoid disorders Alanine Aminotransferase 10/23/24 F42.2 - Mixed obsessional thoughts and acts, Z13.1 - Encounter for screening for diabetes mellitus, Z13.220 - Encounter for screening for lipoid disorders Basic Metabolic Panel Fasting 10/23/24 F42.2 - Mixed obsessional thoughts and acts, Z13.1 - Encounter for screening for diabetes mellitus, Z13.220 - Encounter for screening for lipoid disorders Aspartate Amino Transferase 10/23/24 F42.2 - Mixed obsessional thoughts and acts, Z13.1 - Encounter for screening for diabetes mellitus, Z13.220 - Encounter for screening for lipoid disorders
[2024-10-23 14:35] VITALS: BP 130/85
--- OUTSIDE RECORDS SUMMARY | 2024-10-23 16:27 | XMS_ITS | Encounter Summary ---
Author Organization [facility] Address [address] [place] [phone] Phone Care Team Providers Care Coal Tram Driver Name Role Phone Meliton Cardoso MD Primary Care Provider Unavailabl e Encounter Details Date Type Department Care Team (Late st Contact Info) Description 07/18/2012 Documentation [facility] [place] Family Medicine [address] [place] [address] Family Medicine, Physician [address] [place] [address] Social History Tobacco Use Types Packs/Day Years Used Date Smoking Tobacco: Never Assessed Sex and Gender Information Value Date Recorded Sex Assigned at Not on file Legal Sex Male 4:56 PM EDT Gender Identity Not on file Sexual Orientation Not on file documented as of this encounter Plan of Treatment Not on file documented as of this encounter Visit Diagnoses Not on filedocumented in this encounter Care Teams Coal Tram Driver Relationship Specialty Start Date End Date Meliton Cardoso MD PCP - General 02/02/17 documented as of this encounter
--- OUTSIDE RECORDS SUMMARY | 2024-10-23 16:27 | XMS_ITS | Encounter Summary ---
Author Organization [facility] Address [address] [place] [address] Phone Care Team Providers Care Cheese Tester Name Role Phone Meliton Cardoso MD Primary Care Provider Unavailabl e Encounter Details Date Type Department Care Team (Late st Contact Info) Description 02/14/2017 Documentation [facility] [place] Family Medicine [facility] [place] [address] Family Medicine, Physician [address] [place] [address] Social History Tobacco Use Types Packs/Day Years Used Date Smoking Tobacco: Never Comments:Never smoker Sex and Gender Information Value Date Recorded Sex Assigned at Not on file Legal Sex Male 4:56 PM EDT Gender Identity Not on file Sexual Orientation Not on file documented as of this encounter Plan of Treatment Not on file documented as of this encounter Visit Diagnoses Not on filedocumented in this encounter Care Teams Cheese Tester Relationship Specialty Start Date End Date Meliton Cardoso MD PCP - General 02/02/17 documented as of this encounter
--- OUTSIDE RECORDS SUMMARY | 2024-10-23 16:27 | XMS_ITS | Encounter Summary ---
Author Organization [facility] Address [address] [place] [phone] Phone Care Team Providers Care Bait Tier Name Role Phone Meliton Cardoso MD Primary Care Provider Unavailabl e Encounter Details Date Type Department Care Team (Late st Contact Info) Description 11/12/2009 Documentation [facility] [place] Family Medicine [address] [place] [address] Family Medicine, Physician [address] [place] [address] Social History Tobacco Use Types Packs/Day Years [...] on filedocumented in this encounter Care Teams Bait Tier Relationship Specialty Start Date End Date Meliton Cardoso MD PCP - General 02/02/17 documented as of this encounter
--- OUTSIDE RECORDS SUMMARY | 2024-10-23 16:27 | XMS_ITS | Encounter Summary ---
Author Organization [facility] Address [address] [place] [address] Phone Care Team Providers Care Apartment Groundskeeper Name Role Phone Meliton Cardoso MD Primary Care Provider Unavailabl e Encounter Details Date Type Department Care Team (Late st Contact Info) Description 09/19/2013 Documentation [facility] [place] Family Medicine [facility] [place] [address] Family Medicine, Physician [address] [place] [address] Social History Tobacco Use Types Packs/Day Years [...] on filedocumented in this encounter Care Teams Apartment Groundskeeper Relationship Specialty Start Date End Date Meliton Cardoso MD PCP - General 02/02/17 documented as of this encounter
--- OUTSIDE RECORDS SUMMARY | 2024-10-23 16:27 | XMS_ITS | Encounter Summary ---
Author Organization [facility] Address [address] [place] [phone] Phone Care Team Providers Care Wall To Wall Carpet Installer Name Role Phone Meliton Cardoso MD Primary Care Provider Unavailabl e Encounter Details Date Type Department Care Team (Late st Contact Info) Description 02/08/2017 Conversion Encounter [facility] - [address] [address] Social History Tobacco Use Types Packs/Day Years [...] on filedocumented in this encounter Care Teams Wall To Wall Carpet Installer Relationship Specialty Start Date End Date Meliton Cardoso MD PCP - General 02/02/17 documented as of this encounter
--- OUTSIDE RECORDS SUMMARY | 2024-10-23 16:27 | XMS_ITS | Encounter Summary ---
Author Organization [facility] Address [address] [place] [phone] Phone Care Team Providers Care Waste Removalist Name Role Phone Meliton Cardoso MD Primary Care Provider Unavailabl e Encounter Details Date Type Department Care Team (Late st Contact Info) Description 01/22/2017 Documentation [facility] [place] [facility] [place] [address] Family Medicine, Physician [address] [place] [address] Social History Tobacco Use Types Packs/Day Years [...] on filedocumented in this encounter Care Teams Waste Removalist Relationship Specialty Start Date End Date Meliton Cardoso MD PCP - General 02/02/17 documented as of this encounter
--- OUTSIDE RECORDS SUMMARY | 2024-10-23 16:27 | XMS_ITS | Encounter Summary ---
Author Organization [facility] Address [address] [place] [phone] Phone Care Team Providers Care Aurist Name Role Phone Meliton Cardoso MD Primary Care Provider Unavailabl e Encounter Details Date Type Department Care Team (Late st Contact Info) Description 05/27/2015 Documentation [facility] [place] Family Medicine [facility] [place] [address] Family Medicine, Physician [facility] [place] [address] Social History Tobacco Use Types Packs/Day Years [...] on filedocumented in this encounter Care Teams Aurist Relationship Specialty Start Date End Date Meliton Cardoso MD PCP - General 02/02/17 documented as of this encounter
--- OUTSIDE RECORDS SUMMARY | 2024-10-23 16:27 | XMS_ITS | Encounter Summary ---
Author Organization [facility] Address [address] [place] [phone] Phone Care Team Providers Care Rouge Miller Name Role Phone Meliton Cardoso MD Primary Care Provider Unavailabl e Encounter Details Date Type Department Care Team (Late st Contact Info) Description 06/20/2012 Documentation [facility] [place] Family Medicine [facility] [place] [address] Family Medicine, Physician [address] [place] [address] Social History Tobacco Use Types Packs/Day Years [...] on filedocumented in this encounter Care Teams Rouge Miller Relationship Specialty Start Date End Date Meliton Cardoso MD PCP - General 02/02/17 documented as of this encounter
--- OUTSIDE RECORDS SUMMARY | 2024-10-23 16:27 | XMS_ITS | Clinical Summary ---
Author Organization [facility] Address [address] [place] [phone] Phone Care Team Providers Care Account Maintenance Representative Name Role Phone Meliton Cardoso MD Primary Care Provider Unavailabl e Allergies No known active allergies Medications budesonide-formo terol 80-4.5 MCG/ACT inhaler Inhale 2 puffs once daily. Rinse mouth with water after use, do not swallow. 01/25/2018 Active Active Problems Problem Noted Date Diagnosed Date Allergy to dog dander 01/25/2018 Immunizations Immunization Administration Dates Next Due DTaP 5 04/02/2002, 9,1997,07/29,1997 H1N1 04/15/2009 Hep B, ped/adol 1997,1997,1997 Hib (PRP-T) 07/14/1998, 8,1997,05/27 IPV 04/02/2002 Influenza Split 04/19/2012,02/03/2011,02/11/2010 Influenza, injectable, quadrivalent 06/02/2015,1 Influenza, injectable, trivalent 013,03/23/2009,05/13/2008,04/10,06/04/2006,04/26/2005,04/06/2004 ,06/08/2003 MMR 04/02/2002,04/07/1998 Meningococcal Conj (Menactra) MCV4P 01/11/2017,1 07/13/2007 OPV 1997,1997,1997 Td (adult) (Tenivac), 5 Lf t etanus toxoid, PF, adsorbed 01/25/2018 Tdap 05/13/2008 Varicella 05/13/2008,02/28/2001 Family History Medical History Relation Name Comments No Known Problems Brother janeth No Known Problems Father renaldo No Known Problems Mother adam Relation Name Status Comments Brother janeth Alive Brother: Alive and well Father macario Alive Father: Alive a nd well Maternal Grandfather Materna l grandfather: , als Maternal Grandmother Materna l grandmother: unknown, unknown, Mother adam Alive Mother: Alive a nd well Other No family histo ry of Migraines, No family history of Strabismus, No family history of Diabetes mellitus, No family history of Hyperlipidemia, No family history of *Thrombophilia, Family history of Asthma, No family history of Cancer, No family history of *CVA/Stroke, No family history of Developmental dislocation of hip, No family history of *Heart Disease, No family history of Deafness, No family history of Obesity, No family history of ADD/ADHD, No family history of *Sudden /[place] under 55, Family history of *Dental caries, No family history of Seizure disorder Social History Tobacco Use Types Packs/Day Years Used Date Smoking Tobacco: Never Comments:Never smoker Sex and Gender Information Value Date Recorded Sex Assigned at Not on file Legal Sex Male 4:56 PM EDT Gender Identity Not on file Sexual Orientation Not on file Last Filed Vital Signs Vital Sign Reading Time Taken Comments Blood Pressure 120/66 01/25/2018 1:43 PM EDT Pulse 45 01/25/2018 1:43 PM EDT Temperature 36.5 ??C (97.7 ??F) 01/25/2018 1:43 PM ED T Respiratory Rate - - Oxygen Saturation 97% 03/24/2011 12:00 AM EDT Inhaled Oxygen Concentration - - Weight 83.9 kg (185 lb) 01/25/2018 1:43 PM EDT Height 166.4 cm (5' 5.5 ) 01/25/2018 1:43 PM ED T Body Mass Index 30.32 01/25/2018 1:43 PM EDT Plan of Treatment Health Maintenance Due Date Last Done Comments Influenza Vaccines (#1) 2024 06/02/20 15, 04/17/2014, 2013, Additional history exists COVID-19 Vaccine (2023-25 season) 2024 DTaP,Tdap,and Td Vaccines (8 - Td or Tdap) 01/26/2028 01/25/2018, 05/13/2008, 04/02/2002, Additional history exists Hepatitis B Vaccines Completed 1997, 1997, 1997 HIB Vaccines Completed 07/14/1998, 09/24, 1997, Additional history exists IPV Vaccines Completed 04/02/2002, 09/24, 1997, Additional history exists MMR Vaccines Completed 04/02/2002, 04/07/1998 Varicella Vaccines Completed 05/13/2008, 02/28/2001 Meningococcal Vaccine Aged Out 01/11/2017, 008 No longer eligible based on patient's age to complete this topic HPV Vaccines Aged Out No longer eligi ble based on patient's age to complete this topic Hepatitis A Vaccines Aged Out No long er eligible based on patient's age to complete this topic Men B Vaccine Aged Out No longer elig ible based on patient's age to complete this topic Pneumococcal Vaccine Aged Out No long er eligible based on patient's age to complete this topic Insurance [facility] PPO Care Teams Account Maintenance Representative Relationship Specialty Start Date End Date Meliton Cardoso MD PCP - General 02/02/17
--- OUTSIDE RECORDS SUMMARY | 2024-10-23 16:27 | XMS_ITS | Encounter Summary ---
Author Organization [facility] Address [address] [place] [phone] Phone Care Team Providers Care Editor House Organ Name Role Phone Meliton Cardoso MD Primary Care Provider Unavailabl e Encounter Details Date Type Department Care Team (Late st Contact Info) Description 11/25/2015 Documentation [facility] [place] Family Medicine [facility] [place] [address] Family Medicine, Physician [place] [address] Social History Tobacco Use Types Packs/Day Years [...] on filedocumented in this encounter Care Teams Editor House Organ Relationship Specialty Start Date End Date Meliton Cardoso MD PCP - General 02/02/17 documented as of this encounter
== END 2024-10-23 14:54 | disposition home or self-care (01) ==
PROVIDERS: PCP Internal Medicine; Visit Provider Internal Medicine
DX: Z00.01 Encounter for general adult medical examination with abnormal findings (principal); F42.2 Mixed obsessional thoughts and acts; Z68.36 Body mass index [BMI] 36.0-36.9, adult; E66.9 Obesity, unspecified; Z72.0 Tobacco use; E78.5 Hyperlipidemia, unspecified

== ENCOUNTER → 2024-10-23 14:18 | Outpatient (BNVA) | payer OTHER, SELFPAY | PROVIDERS: PCP Internal Medicine; Visit Provider Internal Medicine | DX: Z00.01 Encounter for general adult medical examination with abnormal findings (principal); F42.2 Mixed obsessional thoughts and acts; E66.9 Obesity, unspecified; Z68.36 Body mass index [BMI] 36.0-36.9, adult; E78.5 Hyperlipidemia, unspecified; J45.909 Unspecified asthma, uncomplicated; Z72.0 Tobacco use | CPT/HCPCS: 96127; 96160 ==

== ENCOUNTER 2024-11-11 06:38 | Outpatient (REF) | payer OTHER, SELFPAY ==
--- OUTSIDE RECORDS SUMMARY | 2024-11-11 06:40 | XMS_ITS | Encounter Summary ---
Author Organization [facility] Address [address] [place] [phone] Phone Care Team Providers Care Packaging Machine Operator Name Role Phone Meliton Cardoso MD Primary Care Provider Unavailabl e Encounter Details Date Type Department Care Team (Late st Contact Info) Description 09/19/2013 Documentation [facility] [place] [facility] [place] [address] Family Medicine, Physician [address] [place] [address] Social History Tobacco Use Types Packs/Day Years [...] on filedocumented in this encounter Care Teams Packaging Machine Operator Relationship Specialty Start Date End Date Meliton Cardoso MD PCP - General 02/02/17 documented as of this encounter
--- OUTSIDE RECORDS SUMMARY | 2024-11-11 06:40 | XMS_ITS | Encounter Summary ---
Author Organization [facility] Address [address] [place] [address] Phone Care Team Providers Care Supervisor Frame Sample And Pattern Name Role Phone Meliton Cardoso MD Primary Care Provider Unavailabl e Encounter Details Date Type Department Care Team (Late st Contact Info) Description 01/22/2017 Documentation [facility] [place] Family Medicine [address] [place] [address] Family Medicine, Physician [address] [place] [address] Social History Tobacco Use Types Packs/Day Years [...] on filedocumented in this encounter Care Teams Supervisor Frame Sample And Pattern Relationship Specialty Start Date End Date Meliton Cardoso MD PCP - General 02/02/17 documented as of this encounter
--- OUTSIDE RECORDS SUMMARY | 2024-11-11 06:40 | XMS_ITS | Encounter Summary ---
Author Organization [facility] Address [address] [place] [address] Phone Care Team Providers Care Coal Handling Supervisor Name Role Phone Meliton Cardoso MD Primary Care Provider Unavailabl e Encounter Details Date Type Department Care Team (Late st Contact Info) Description 07/18/2012 Documentation [facility] [place] Medicine [address] [place] [address] Family Medicine, Physician [address] [place] [address] Social History Tobacco Use Types Packs/Day Years [...] filedocumented in this encounter Care Teams Coal Handling Supervisor Relationship Specialty Start Date End Date Meliton Cardoso MD PCP - General 02/02/17 documented as of this encounter
--- OUTSIDE RECORDS SUMMARY | 2024-11-11 06:40 | XMS_ITS | Encounter Summary ---
Author Organization [facility] Address [address] [place] [address] Phone Care Team Providers Care Deburrer Strip Name Role Phone Meliton Cardoso MD Primary Care Provider Unavailabl e Encounter Details Date Type Department Care Team (Late st Contact Info) Description 06/20/2012 Documentation [facility] [place] Family Medicine [facility] [place] [address] Family Medicine, Physician [address] [place] [address] Social History Tobacco Use Types Packs/Day Years [...] on filedocumented in this encounter Care Teams Deburrer Strip Relationship Specialty Start Date End Date Meliton Cardoso MD PCP - General 02/02/17 documented as of this encounter
--- OUTSIDE RECORDS SUMMARY | 2024-11-11 06:40 | XMS_ITS | Encounter Summary ---
Author Organization [facility] Address [address] [place] [address] Phone Care Team Providers Care Arabic Professor Name Role Phone Meliton Cardoso MD Primary Care Provider Unavailabl e Encounter Details Date Type Department Care Team (Late st Contact Info) Description 05/27/2015 Documentation [facility] [place] Family Medicine [facility] [place] [address] Family Medicine, Physician [facility] [place] [address] Social History Tobacco Use Types Packs/Day Years [...] on filedocumented in this encounter Care Teams Arabic Professor Relationship Specialty Start Date End Date Meliton Cardoso MD PCP - General 02/02/17 documented as of this encounter
--- OUTSIDE RECORDS SUMMARY | 2024-11-11 06:40 | XMS_ITS | Encounter Summary ---
Author Organization [facility] Address [address] [place] [address] Phone Care Team Providers Care Robotics Technologist Name Role Phone Meliton Cardoso MD Primary Care Provider Unavailabl e Encounter Details Date Type Department Care Team (Late st Contact Info) Description 11/12/[address] [facility] [place] Family Medicine [address] [place] [address] Family Medicine, Physician [address] [place] [address] Social History Tobacco Use Types Packs/Day Years [...] on filedocumented in this encounter Care Teams Robotics Technologist Relationship Specialty Start Date End Date Meliton Cardoso MD PCP - General 02/02/17 documented as of this encounter
--- OUTSIDE RECORDS SUMMARY | 2024-11-11 06:40 | XMS_ITS | Clinical Summary ---
Author Organization [facility] Address [address] [place] [address] Phone Care Team Providers Care Chain Hoist Operator Name Role Phone Meliton Cardoso MD [...] Mother adam Relation Name Status Comments Brother jaenth Alive Brother: Alive and well Father macario [...] of ADD/ADHD, No family history of *Sudden /[place] under 55, Family history of *Dental caries, [...] patient's age to complete this topic Insurance [facility] PPO Care Teams Chain Hoist Operator Relationship Specialty Start Date End Date Meliton Cardoso MD PCP - General 02/02/17
--- OUTSIDE RECORDS SUMMARY | 2024-11-11 06:40 | XMS_ITS | Encounter Summary ---
Author Organization [facility] Address [address] [place] [address] Phone Care Team Providers Care Card Puncher Name Role Phone Meliton Cardoso MD Primary Care Provider Unavailabl e Encounter Details Date Type Department Care Team (Late st Contact Info) Description 02/08/2017 Conversion Encounter [facility] - [address] [address] Social History Tobacco Use Types Packs/Day Years [...] on filedocumented in this encounter Care Teams Card Puncher Relationship Specialty Start Date End Date Meliton Cardoso MD PCP - General 02/02/17 documented as of this encounter
--- OUTSIDE RECORDS SUMMARY | 2024-11-11 06:40 | XMS_ITS | Encounter Summary ---
Author Organization [facility] Address [address] [place] [phone] Phone Care Team Providers Care Mammal Control Agent Name Role Phone Meliton Cardoso MD Primary Care Provider Unavailabl e Encounter Details Date Type Department Care Team (Late st Contact Info) Description 02/14/[address] [facility] [place] Family Medicine [facility] [place] [address] Family Medicine, Physician [address] [place] [address] Social History Tobacco Use Types Packs/Day Years [...] on filedocumented in this encounter Care Teams Mammal Control Agent Relationship Specialty Start Date End Date Meliton Cardoso MD PCP - General 02/02/17 documented as of this encounter
--- OUTSIDE RECORDS SUMMARY | 2024-11-11 06:40 | XMS_ITS | Encounter Summary ---
Author Organization [facility] Address [address] [place] [address] Phone Care Team Providers Care Embedded Firmware Developer Name Role Phone Meliton Cardoso MD Primary Care Provider Unavailabl e Encounter Details Date Type Department Care Team (Late st Contact Info) Description 11/25/2015 Documentation [facility] [place] [facility] [place] [address] Family Medicine, Physician [facility] [place] [address] Social History Tobacco Use Types Packs/Day Years [...] on filedocumented in this encounter Care Teams Embedded Firmware Developer Relationship Specialty Start Date End Date Meliton Cardoso MD PCP - General 02/02/17 documented as of this encounter
[2024-11-11 10:46] LABS: Alanine Aminotransferase 72 U/L (0-40); Anion Gap 13 (12-20); Aspartate Amino Transferase 42 U/L (5-37); Blood Urea Nitrogen 23 mg/dL (9-16); Calcium 9.5 mg/dL (8.4-10.2); Carbon Dioxide 25 mmol/L (22-29); Chloride 105 mmol/L (96-108); Cholesterol 254 mg/dL (<200); Estimated Glomerular Filt Rate > 60; Glucose Fasting 100 mg/dL (60-99); HDL Cholesterol 54 mg/dL (>40); LDL Cholesterol Calculated 179 mg/dL (<100); Potassium 4.2 mmol/L (3.3-5.1); Sodium 139 mmol/L (135-145); Triglycerides 108 mg/dL (<150)
== END 2024-11-11 06:39 | disposition home or self-care (01) ==
LOC: HO.HMGCLDS 06:38
PROVIDERS: PCP Internal Medicine; Visit Provider Internal Medicine
DX: F42.2 Mixed obsessional thoughts and acts (principal); Z13.220 Encounter for screening for lipoid disorders; Z13.1 Encounter for screening for diabetes mellitus; F44.2 Dissociative stupor
CPT/HCPCS: 36415; 80048; 80061; 84450; 84460